=== PATIENT | male | born 1955 | race Caucasian/White ===

== ENCOUNTER → 2021-07-24 08:50 | Outpatient (CLI) | payer OTHER, SELFPAY ==
[2021-07-24 12:03] LABS: COVID19 -Nasal RAPID Negative (Negative)
== END ==
PROVIDERS: PCP Family Medicine; Visit Provider Physician Assistant
DX: Z20.822 Contact with and (suspected) exposure to COVID-19 (principal)
CPT/HCPCS: 87635

== ENCOUNTER 2021-07-25 07:02 | Day surgery (SDC) | payer OTHER, SELFPAY ==
--- NOTE | 2021-07-25 | PATH_ITS ---
[facility] Accession Number: [id number] . 01 Material submitted: . PART A: duodenum - DUODENUM BIOPSY PART B: gastrointestinal site - GASTRIC POLYP PART C: colon - SIGMOID COLON POLYP . 02 Diagnosis: A. Duodenum, Biopsy: Duodenal mucosa with focal mucosal erosion and otherwise no diagnostic abnormality. Negative for active inflammation, features of sprue, dysplasia, or malignancy. . B. Gastric Polyp: Polypoid foveolar hyperplasia. . C. Sigmoid Colon Polyp: Tubular / tubulovillus adenoma. MRV 07/31/2021 1111 Local . 02 Electronically signed: . Fátima Solano MD, Pathologist NPI- [id number] . 01 Gross description: . Part A: DUODENUM BIOPSY: Received in formalin are 2 fragment(s) of carballo, soft tissue measuring 0.2 x 0.2 x 0.2 cm to 0.4 x 0.2 x 0.2 cm submitted entirely in 1 cassette(s) Part B: GASTRIC POLYP: Received in formalin is 1 fragment(s) of carballo, soft tissue measuring 0.3 x 0.3 x 0.3 cm submitted entirely in 1 cassette(s) Part C: SIGMOID COLON POLYP: Received in formalin is 1 fragment of carballo soft tissue measuring 1.0 x 0.8 x 2.3 cm. Specimen is sectioned and submitted in its entirety in 1 cassette. /LUCIE 07/26/2021 1851 Local . 02 Pathologist provided ICD-10: K63.5 . 02 CPT . 221519, 766856, 152804 Performed at: 01 [facility] [address] [place] [address] [address] [facility], [place], [place] [id number] MD Miles Sutton MD Phone: [phone] Performed at: 02 [facility] [address] [place] [id number] MD Jaki Bah MD Phone: [phone]
[2021-07-25 07:26] VITALS: BP 163/100; PULSE 77; RESP 16; TEMP 37.3; O2SAT 100; BMI 21.7
[2021-07-25] MEDS: SODIUM CHLORIDE 0.9% 1,000 ML 84 ML IV (07:55)
--- NOTE | 2021-07-25 07:58 | PM.HP.1 ---
History of Present Illness History of Present Illness Date Patient Seen: 07/25/21 Time Patient Seen: 07:58 Chief complaint: DX COLONOSCOPY & EGD W/POSS BX Narrative: I reviewed my note from June 12, 2021. No significant changes. Patient History Medical History Hypercholesterolemia Hypertension Normal colonoscopy Parkinson disease Pneumothorax Weight loss Family & Social History Social History: household members spouse Tobacco & Substance use: Smoking Status Never smoker alcohol intake never Substance Use Type does not use Meds Home Medications and Allergies Home Medications Medication Instructions Recorded Confirmed Type atenolol 50 mg tablet 50 mg PO QDAY #0 09/20/11 07/25/21 History lisinopril 20 mg tablet (Prinivil) 20 mg PO Q DAY #0 09/20/11 07/25/21 History atorvastatin 10 mg tablet 10 mg PO DAILY 07/24/21 07/25/21 History pantoprazole 40 mg tablet,delayed 40 mg PO DAILY 07/24/21 07/25/21 History release rivastigmine tartrate 1.5 mg mg 07/24/21 History capsule rivastigmine tartrate 1.5 mg 1.5 mg PO BID 07/25/21 07/25/21 History capsule Allergies Allergy/AdvReac Type Severity Reaction Status Date / Time codeine [CODEINE] AdvReac Unknown UPSET Verified 07/25/21 07:20 STOMACH Review of Systems Review of Systems ROS: Yes All systems reviewed with the patient and are negative except as otherwise documented Exam Vital Signs (past 8 hours): - 07/25/21 07:26 Temperature 99.1 F Pulse Rate 77 Respiratory Rate 16 Blood Pressure 163/100 H Pulse Oximetry 100 Oxygen Delivery Method Room Air Const General: cooperative and comfortable Orientation: alert HENNJ Head: normocephalic Ears: external ears normal Nose: external nose normal Face and sinus: normal facial exam Mouth: oral mucosae normal Eyes General: appearance normal, both eyes and all related structures Neck Neck: normal visual inspection Chest Chest: normal inspection of the chest Resp Effort & Inspection: normal respiratory effort Cardio Rate: regular rate GI Inspection: normal to inspection Skin General: no rashes or lesions noted and No jaundice Neuro General: patient alert and moves all extremities Cognition: normal cognition Speech: speech normal Extrem General: no pedal edema Psych Appearance: grossly normal Assessment & Plan Assessment & Plan narrative: 65-year-old male with Parkinson's and unexplained weight loss. There is also report of anemia. EGD and colonoscopy are pursued today. Time Spent With Patient Critical Care time: I spent a total of [] minutes of critical care time on this patient's care today; this time is exclusive of procedural time.
--- NOTE | 2021-07-25 07:59 | PM.PREOP ---
Pre-operative Note COVID-19 COVID-19 status: Negative Result date/Date tested (Pos, Neg/Pending): 07/24/21 Interval Note History & Physical reviewed/Exam performed by Physician: Yes Changes to H&P: No ASA Class (for procedural sedation): II
--- NOTE | 2021-07-25 09:09 | P.OP.EGD&C_ITS ---
Operative Date/Time/Diagnoses Date of procedure: 07/25/21 Time of procedure: 09:10 Pre-op diagnosis: Weight loss Post-op diagnosis: same Procedure & Clinicians Study performed: EGD with biopsies and colonoscopy with hot snare polypectomy Same procedure as scheduled: Yes Indications: Weight loss Surgeon: Maverick Martínez Procedure Notes SCOAP/Timeout: Done Procedure in detail: After the risks and benefits were explained, written and verbal informed consent was obtained. The patient was brought into the procedure room and placed into the left lateral decubitus position. Please see nurse metal machine operator notes for sedation details. The scope was introduced into the mouth through the bite block and advanced under direct visualization to the 2nd portion of the duodenum. The scope was slowly withdrawn carefully examining the mucosa for any defects or lesions. Retroflexed views were accomplished in the stomach. The stomach was decompressed, the scope was then removed from the patient who tolerated the procedure well. The patient was then turned around a digital rectal examination accomplished mild hemorrhoids appreciated. The scope was introduced into the rectum and advanced to the cecum as identified by the appendiceal orifice and ileocecal valve. The terminal ileum was interrogated. The scope was slowly withdrawn to carefully examine the mucosa for any defects or lesions. Multiple direct views were made through the dentate line the colon was decompressed scope removed the patient tolerated the procedure well. Bowel prep adequate Pediatric colonoscope Scope withdrawal time: 20 minutes Sedation minutes: 36 Complications: none Impression: 1. Duodenum this was visually normal from the bulb through to the 2nd portion. Random biopsies were taken from the 2nd portion for exclusion of sprue. 2. Stomach: This was visually unremarkable no ulcers no mass lesions no outlet obstruction. There were a few diminutive benign appearing gastric polyps in the body and 1 of these measuring perhaps 5 mm was removed with cold forceps for a health and safety representative sample. Retroflexed views of the LES disclosed a sliding hiatal hernia 3. Esophagus: The squamocolumnar junction correlated with the top of the gastric folds. GEJ was at approximately 35 cm from the incisors. The diaphrag matic pinchcock was at approximately 40 cm from the incisors. No erosive changes no strictures no mass lesions. 4. Colon: There was a large pedunculated polyp in the sigmoid colon. This was an irregular shaped polyp perhaps up to 2.5 cm in greatest dimension. This was removed with hot snare. No additional significant pathology was appreciated throughout. 5. Terminal ileum this appeared visually normal. Endoscopic diagnosis 1. Diminutive gastric polyps 2. Hiatal hernia 3. Sigmoid colon polyp Post-procedure Plan for aftercare: 1. Await histopathology 2. Repeat colonoscopy 3 years. 3. If there are no features histologically to account for weight loss, consider CT abdomen pelvis. Disposition: PACU
[2021-07-25 09:12] VITALS: BP 131/75; PULSE 57; RESP 16; TEMP 36.2; O2SAT 100
[2021-07-25 09:18] VITALS: BP 140/80; PULSE 60; RESP 17; O2SAT 100
[2021-07-25 09:22] VITALS: BP 135/91; PULSE 82; RESP 17; O2SAT 98
[2021-07-25 09:28] VITALS: BP 149/87; PULSE 68; RESP 15; O2SAT 100
[2021-07-25 09:32] VITALS: BP 158/90; PULSE 65; RESP 16; O2SAT 98
== END 2021-07-25 10:00 | disposition home or self-care (01) ==
PROVIDERS: PCP Nurse Practitioner Family; Referring Provider Internal Medicine Gastroenterology; Visit Provider Internal Medicine Gastroenterology
PROC: 0DJ08ZZ Inspection of Upper Intestinal Tract, Via Natural or Artificial Opening Endoscopic (ICD-10-PCS; CPT 43235; principal; 2021-07-25 08:30)
PROC: 0DJD8ZZ Inspection of Lower Intestinal Tract, Via Natural or Artificial Opening Endoscopic (ICD-10-PCS; CPT 45378; 2021-07-25 08:30)
DX: R63.4 Abnormal weight loss (principal); G20 Parkinson's disease; I10 Essential (primary) hypertension; E78.00 Pure hypercholesterolemia, unspecified; K31.7 Polyp of stomach and duodenum; K44.9 Diaphragmatic hernia without obstruction or gangrene; D12.5 Benign neoplasm of sigmoid colon; K26.9 Duodenal ulcer, unspecified as acute or chronic, without hemorrhage or perforation
CPT/HCPCS: 45385; 43239; J2704